=== PATIENT | male | born 1995 | race Caucasian/White ===

== ENCOUNTER 2018-11-07 09:13 | Emergency (ER) | payer OTHER, BC ==
[2018-11-07 09:21] VITALS: BP 148/81
[2018-11-07] MEDS ORDERED: IBUPROFEN 800 MG TABLET PO ONE (09:39)
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
== END 2018-11-07 10:31 | disposition home or self-care (01) ==
LOC: ER 09:13
DX: R51 Headache (principal); V43.92XA Unspecified car occupant injured in collision with other type car in traffic accident, initial encounter; F17.200 Nicotine dependence, unspecified, uncomplicated; I10 Essential (primary) hypertension
CPT/HCPCS: 70450; 99283

== ENCOUNTER 2018-11-12 18:25 | Emergency (ER) | payer OTHER, BC ==
[2018-11-12 18:36] VITALS: BP 134/76
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
== END 2018-11-12 20:35 | disposition home or self-care (01) ==
LOC: ER 18:25
DX: M54.2 Cervicalgia (principal); M54.6 Pain in thoracic spine; M54.5 Low back pain; V87.7XXD Person injured in collision between other specified motor vehicles (traffic), subsequent encounter; F17.210 Nicotine dependence, cigarettes, uncomplicated; I10 Essential (primary) hypertension
CPT/HCPCS: 72050; 72070; 72110; 99283; 99406